=== PATIENT | female | born 1960 | race Caucasian/White ===

== ENCOUNTER 2017-09-24 13:19 | Emergency (ER) | payer SELFPAY ==
[~2017-09-24] VITALS: Ht 162.6 cm; Wt 86.2 kg
[~2017-09-24 13:19] MED LIST: ALBU90OI INH; ALBU90OI6 INH; AMOX500 PO; CEPH500 PO; CYCL10 PO; Cyclobenzaprine5 MG PO; DEXGUASY PO; DOXY100 PO; HYDACE5 PO; HYDPAM50 PO; IBUP600 PO; MED FOR CHOLESTEROL; MULVITA PO; NAPR500 PO; NAPR550 PO; Norco 5-325 Ta1 EACH PO; OXYACE5T PO; PRED20 PO; RXCYCL10 PO; RXHYDACE PO; RXNAPNA550 PO; SIMV5 PO; TOBR.3OPSO OP; TRAM50 PO
[2017-09-24] MEDS ORDERED: Voltaren100 GM TOP (14:14)
== END 2017-09-24 14:31 | disposition home or self-care (01) ==
LOC: ER 13:19
DX: M25.561 Pain in right knee (principal); Z88.2 Allergy status to sulfonamides; F17.210 Nicotine dependence, cigarettes, uncomplicated; J45.909 Unspecified asthma, uncomplicated
CPT/HCPCS: 73564; 99283

== ENCOUNTER 2019-07-05 10:09 | Emergency (ER) | payer SELFPAY ==
[~2019-07-05] VITALS: Ht 162.6 cm; Wt 81.7 kg
[~2019-07-05 10:09] MED LIST changes: +METPRE4DP PO; +PRED10 PO; +Robaxin500 MG PO; +Voltaren100 GM TOP
[2019-07-05] MEDS ORDERED: Vistaril50 MG PO (11:25)
== END 2019-07-05 11:29 | disposition home or self-care (01) ==
LOC: ER 10:09
DX: B88.8 Other specified infestations (principal); I10 Essential (primary) hypertension; E78.5 Hyperlipidemia, unspecified; F17.210 Nicotine dependence, cigarettes, uncomplicated; Z88.2 Allergy status to sulfonamides
CPT/HCPCS: 99282

== ENCOUNTER → 2025-02-02 | Outpatient (CLI) | payer MEDICARE, OTHER ==
[~2025-02-02] MED LIST changes: +Vistaril50 MG PO
[2025-02-02 08:02] LABS: BASOPHILS ABSOLUTE AUTO 0.07 K/mm3 (0.00-0.23); BASOPHILS PERCENT AUTO 1 % (0-2); EOSINOPHILS ABSOLUTE AUTO 0.33 K/mm3 (0.00-0.68); EOSINOPHILS PERCENT AUTO 4 % (0-6); Hematocrit 39.7 % (33.0-51.0); Hemoglobin 13.3 g/dL (11.5-16.0); IMMATURE GRAN ABSOLUTE AUTO 0.03 K/mm3 (0.00-0.10); IMMATURE GRAN PERCENT AUTO 0 % (0-1); LYMPHOCYTES ABSOLUTE AUTO 2.74 K/mm3 (0.84-5.20); LYMPHOCYTES PERCENT AUTO 36 % (21-46); MONOCYTES ABSOLUTE AUTO 0.58 K/mm3 (0.16-1.47); MONOCYTES PERCENT AUTO 8 % (4-13); Mean Corpuscular HGB Conc 33.5 g/dL (31.5-36.5); Mean Corpuscular Volume 87 fL (80-100); NEUTROPHILS ABSOLUTE AUTO 3.85 K/mm3 (1.96-9.15); NEUTROPHILS PERCENT AUTO 51 % (41-73); NRBC ABSOLUTE 0.00 K/mm3 (0.00-0.02); NRBC Auto 0.0 /100 WBC (0.0-0.2); Platelet Count 167 K/mm3 (150-400); RDW Coefficient Variation 13.5 % (11.7-14.2); RDW Standard Deviation 42.9 fL (35.1-46.3)
[2025-02-02 08:44] LABS: Alanine Aminotransfer (ALT/SGP 33.0 U/L (12-78); Albumin, Blood 3.4 g/dL (3.4-5.0); Albumin/Globulin Ratio 1.1 (0.8-1.8); Anion Gap 9.0 mmol/L (3-11); Aspartate Aminotrans (AST/SGOT 13.0 U/L (12-37); Bilirubin, Total 0.5 mg/dL (0.1-1.0); Blood Urea Nitrogen 15.0 mg/dL (8-24); CO2, Blood 28.0 mmol/L (21-32); Calcium, Blood 9.0 mg/dL (8.5-10.1); Chloride, Blood 104.0 mmol/L (98-108); Creatinine, Blood 0.86 mg/dL (0.40-1.00); Globulin, Blood 3.2 g/dL (2.2-4.0); Glucose, Blood 135.0 mg/dL (70-99); Potassium, Blood 3.8 mmol/L (3.5-5.5); Sodium, Blood 137.0 mmol/L (136-145); Total Protein, Blood 6.6 g/dL (6.4-8.2)
== END | disposition home or self-care (01) ==
LOC: LAB SHORT 07:58 → LAB 07:58
PROVIDERS: Physician Assistant
DX: R60.9 Edema, unspecified (principal)
CPT/HCPCS: 80053; 85025

== ENCOUNTER 2025-05-29 06:45 | Emergency (ER) | payer MEDICARE, OTHER ==
[~2025-05-29] VITALS: Ht 162.6 cm; Wt 116.1 kg
[2025-05-29] MEDS ORDERED: Fluorescein Sod 1MG Opth Strips RIGHTEYE ONE (07:35)
[2025-05-29] MEDS ORDERED: Tetracaine HCl/Pf 0.5% Opth Soln 4 ml BOTHEYES ONE (07:35)
[2025-05-29 08:35] VITALS: BP 147/90
== END 2025-05-29 09:47 | disposition home or self-care (01) ==
LOC: ER 06:45
DX: H43.391 Other vitreous opacities, right eye (principal); Z88.2 Allergy status to sulfonamides; J45.909 Unspecified asthma, uncomplicated; I10 Essential (primary) hypertension; E78.5 Hyperlipidemia, unspecified; F17.210 Nicotine dependence, cigarettes, uncomplicated
CPT/HCPCS: 99283; A9270